=== PATIENT | female | born 1970 | race African-American/Black ===

== ENCOUNTER 2022-07-19 11:17 | Emergency (ER) | payer BC ==
[2022-07-19] MEDS ORDERED: cloNIDine 0.1 MG TAB ONE (12:50)
[2022-07-19] MEDS ORDERED: Dexamethasone 10 MG/ML VIAL ONE (12:50)
[2022-07-19] MEDS ORDERED: Ketorolac Tromethamine 30 MG/ML VIAL ONE (12:51)
== END 2022-07-19 13:20 | disposition home or self-care (01) ==
LOC: CSHERS 11:17
DX: I10 Essential (primary) hypertension (principal); M25.562 Pain in left knee; M25.561 Pain in right knee; R79.9 Abnormal finding of blood chemistry, unspecified; Z87.891 Personal history of nicotine dependence
CPT/HCPCS: 96372; 99283; J1100; J1885